=== PATIENT | male | born 1960 | race Caucasian/White ===

== ENCOUNTER 2020-09-17 09:47 | Emergency (ER) | payer OTHER, SELFPAY ==
[2020-09-17 10:07] VITALS: BP 126/68; PULSE 70; RESP 16; TEMP 36.1; O2SAT 97
[2020-09-17 11:30] LABS: Basophils Percent Auto 0.2 % (0.2-1.2); Eosinophils Absolute Auto 0.1 K/mm3 (0-0.3); Eosinophils Percent Auto 1.2 % (0-4.4); Hematocrit 45.4 % (42.0-52.0); Hemoglobin 15.3 g/dL (14.0-18.0); Immature Granulocyte Absolute 0.05 K/mm3 (0.00-0.031); Immature Granulocyte Percent A 0.6 % (0-0.5); Lymphocytes Absolute Auto 1.38 K/mm3 (0.9-3.2); Lymphocytes Percent Auto 16.6 % (18.3-44.2); Mean Corpuscular HGB Conc 33.7 g/dl (32-36); Mean Corpuscular Hemoglobin 31.4 pg (26-34); Mean Platelet Volume 9.5 fl (7.4-10.4); Monocytes Absolute Auto 0.9 K/mm3 (0.1-0.6); Monocytes Percent Auto 10.6 % (2.6-8.5); Neutrophils Absolute Auto 5.9 K/mm3 (1.3-6.7); Neutrophils Percent Auto 70.8 % (45.5-73.1); Platelet Count Result 190 k/mm3 (150-375); Red Blood Count 4.88 M/mm3 (4.6-6.20); Red Cell Distribution Width 12.4 % (11.5-14.5); White Blood Count 8.3 K/mm3 (4.5-10.0)
[2020-09-17 11:44] LABS: Alanine Aminotransferase 30 U/L (4-50); Albumin Level 3.9 g/dL (3.5-5.1); Alkaline Phosphatase 76 U/L (38-126); Anion Gap 7 mmol/L (8-16); Aspartate Amino Transferase 24 U/L (17-59); Bilirubin,Total 1.1 mg/dL (0.2-1.3); Blood Urea Nitrogen 25 mg/dL (9-20); Calcium 9.1 mg/dL (8.4-10.2); Carbon Dioxide 29 mmol/L (22-30); Chloride 101 mmol/L (98-107); Estimated CRCL calculation 70 ml/min; Estimated Glomerular Filt Rate > 60; Glucose 133 mg/dL (75-110); Potassium 4.3 mmol/L (3.4-5.0); Sodium 137 mmol/L (137-145)
[2020-09-17 11:48] LABS: CRP 5.5 mg/dL (<1.0)
[2020-09-17 11:55] VITALS: BP 104/73; PULSE 57; RESP 18; O2SAT 96
--- NOTE | 2020-09-17 11:58 | ED.GENADULT ---
HPI - General Adult General Chief complaint: Unspecified Stated complaint: muscle and joint pain Time Seen by Provider: 09/17/20 10:56 Source: patient Mode of arrival: ambulatory Limitations: no limitations History of Present Illness HPI narrative: Patient is a 60-year-old male who presents to emergency department for evaluation of 1 month duration of generalized arthralgias myalgias was seen by primary care prescribed Medrol dose pack was given a referral for film masker but was unable to establish the appointment patient was seen by a sports marketing specialist to notes that he feels the patient is better suited to see a specialist and not an orthopedist patient on arrival to emergency department is generalized arthralgias myalgias worse with activity and movement denies similar occurrence in the past or any injury or trauma has been taking steroids only for his symptoms and on arrival is in the room in no distress and presents per private vehicle Related Data Home Medications Medication Instructions Recorded Confirmed metformin mg BID 09/17/20 methocarbamol See Rx Instructions .ROUTE 09/17/20 09/17/20 .COMPLEX PRN Allergies Allergy/AdvReac Type Severity Reaction Status Date / Time No Known Allergies Allergy Verified 09/17/20 10:16 Review of Systems Review of Systems: All systems reviewed & are unremarkable except as noted in HPI and below PMFSH Past Medical History Medical History (Updated 09/17/20 @ 12:01 by Rosendo Easley PA-C) Diabetes mellitus Social History Social History (Updated 09/17/20 @ 12:00 by Rosendo Easley PA-C) Smokeless tobacco user: chewing tobacco Gender identity (if verbalized by the patient): Male Exam Narrative: Exam Narrative: GENERAL: Well-appearing, well-nourished, and in no acute distress. HEAD: Normocephalic, atraumatic. EYES: PERRLA and EOMI. ENT: Nares clear, no rhinorrhea or epistaxis. Mucous membranes moist. CHEST: Clear to auscultation. No respiratory distress. No wheezes rales or rhonchi HEART: Regular rate and rhythm. No murmur heard. Normal peripheral pulses. EXTREMITIES: Normal range of motion. No edema. SKIN: Warm, dry, no rash. NEURO: No focal deficits. Alert and oriented x3. Cranial nerves II through XII grossly intact PSYCH: Normal mood and affect. Course Course Emergency Course: Patient in the room in no distress will be discharged home no high risk changes in the blood work felt appropriate for outpatient reevaluation by primary care for specialty referral Vital Signs Vital signs: Vital Signs Temperature 97 F L 09/17/20 10:07 Pulse Rate 70 09/17/20 10:07 Respiratory Rate 16 09/17/20 10:07 Blood Pressure 126/68 09/17/20 10:07 Pulse Oximetry 97 09/17/20 10:07 Temperature 97 F L 09/17/20 10:07 Pulse Rate 57 L 09/17/20 11:55 Respiratory Rate 18 09/17/20 11:55 Blood Pressure 104/73 09/17/20 11:55 Pulse Oximetry 96 09/17/20 11:55 Medical Decision Making MDM Narrative Medical decision making narrative: Patients injury or pain is consistent with musculoskeletal etiology. No signs of neurological or vascular compromise on exam. Compartments and tisues are soft without signs of compartment syndrome. Pain is felt appropriate for further evaluation on an outpatient basis. Vital Signs Vital Signs: Vital Signs Temperature 97 F L 09/17/20 10:07 Pulse Rate 70 09/17/20 10:07 Respiratory Rate 16 09/17/20 10:07 Blood Pressure 126/68 09/17/20 10:07 Pulse Oximetry 97 09/17/20 10:07 Temperature 97 F L 09/17/20 10:07 Pulse Rate 57 L 09/17/20 11:55 Respiratory Rate 18 09/17/20 11:55 Blood Pressure 104/73 09/17/20 11:55 Pulse Oximetry 96 09/17/20 11:55 Lab Data Result diagrams: 09/17/20 11:22 09/17/20 11:22 Labs: Lab Results 09/17/20 09/17/20 09/17/20 Range/Units 11:22 11:22 11:22 WBC 8.3 (4.5-10.0) K/mm3 RBC 4.88 (4.6-6.20) M/mm3 Hgb 15
--- NOTE | 2020-09-17 12:17 | PC.NURSE ---
In to discharge patient, when going over the discharge papers, explains that he might be allergic to tylenol. Requests to speak with provider regarding discharge instructions.
--- NOTE | 2020-09-17 12:34 | PC.NURSE ---
Patient stated he did taken a percocet from a friend and it helped a little. ERP notified.
[2020-09-17 13:04] LABS: Erythrocyte Sedimentation Rate 18 mm/hr (0-20)
== END 2020-09-17 12:35 | disposition home or self-care (01) ==
PROVIDERS: Emergency Medicine Emergency Medical Services; Emergency Provider Emergency Medicine
DX: M25.50 Pain in unspecified joint (principal); E11.9 Type 2 diabetes mellitus without complications; Z79.84 Long term (current) use of oral hypoglycemic drugs; F17.220 Nicotine dependence, chewing tobacco, uncomplicated
CPT/HCPCS: 36415; 80053; 85025; 85652; 86140; 99283